=== PATIENT | female | born 1995 | race African-American/Black ===

== ENCOUNTER 2021-05-21 17:06 | Emergency (ER) | payer MEDICAID ==
[~2021-05-21] VITALS: Ht 165.1 cm; Wt 54.0 kg
[2021-05-21 17:42] LABS: BASOPHILS % 0.7 % (0.0-2.0); EOSINOPHILS % 1.3 % (0.0-5.0); HEMATOCRIT. 33.2 % (36.0-48.0); HEMOGLOBIN. 10.8 g/dL (12.0-16.0); LYMPHOCYTES % 32.6 % (20.0-50.0); MEAN CORPUSCULAR HEMOGLOBIN 30.8 pg (28.0-32.0); MEAN CORPUSCULAR VOLUME 94.6 fL (81.0-99.0); MEAN PLATELET VOLUME 7.6 fl (7.4-10.4); MONOCYTES % 9.8 % (2.0-8.0); NEUTROPHILS % 55.6 % (40.0-76.0); PLATELET 334 x1000/uL (130-400); RED BLOOD CELL COUNT 3.51 mill/uL (4.2-5.4); RED CELL DISTRIBUTION WIDTH 13.9 % (11.6-14.6)
[2021-05-21 17:49] LABS: CHLORIDE 109 mEq/L (98-107)
[2021-05-21 17:57] LABS: ETHANOL BLOOD < 10 mg/dL
[2021-05-21] MEDS ORDERED: LORAZEPAM 0.5MG TABLET PO ONE (21:30)
[2021-05-21 21:49] LABS: CLARITY URINE CLOUDY (CLEAR); COLOR URINE YELLOW (YELLOW); KETONES URINE 2+ (NEGATIVE); LEUKOCYTE ESTERASE URINE NEGATIVE (NEGATIVE); NITRITE URINE NEGATIVE (NEGATIVE); OCCULT BLOOD URINE NEGATIVE (NEGATIVE); PH URINE 5.5 (4.5-8.0); PROTEIN URINE 1+ (NEGATIVE); SPECIFIC GRAVITY URINE 1.032 (1.005-1.030)
[2021-05-21 21:57] LABS: HCG SCREEN NEGATIVE
[2021-05-21 22:00] LABS: *AMPHETAMINES SCREEN URINE NEGATIVE (NEGATIVE); *BARBITURATES SCREEN URINE NEGATIVE (NEGATIVE); *BENZODIAZEPINES SCREEN URINE NEGATIVE (NEGATIVE); *COCAINE SCREEN URINE NEGATIVE (NEGATIVE); METHADONE URINE SCREEN NEGATIVE (NEGATIVE)
[2021-05-21] MEDS ORDERED: LIDOCAINE HCL 1% 20ML VIAL (Pyxis) INJ INFIL ONE (22:00)
[2021-05-21] MEDS ORDERED: CEFTRIAXONE SODIUM 500 MG/VIAL IM ONE (22:00)
[2021-05-21 22:01] LABS: OPIATES URINE SCREEN NEGATIVE (NEGATIVE); PHENCYCLIDINE URINE SCREEN NEGATIVE (NEGATIVE)
[2021-05-21 22:10] LABS: CANNABINOID URINE SCREEN PRESUMTIVE POSITIVE (NEGATIVE)
[2021-05-21] MEDS ORDERED: LORA-249 MT ×2 (22:42→22:57)
[2021-05-21 23:00] VITALS: BP 121/60
== END 2021-05-21 23:05 | disposition home or self-care (01) ==
LOC: ER 17:06
DX: F41.1 Generalized anxiety disorder (principal); F32.A Depression, unspecified; F12.10 Cannabis abuse, uncomplicated; Z20.822 Contact with and (suspected) exposure to COVID-19
CPT/HCPCS: 36415; 80053; 80305; 80307; 80320; 80329; 81003; 84703; 85025; 99283; J0696; J3490; G0480